=== PATIENT | male | born 1980 | race Caucasian/White ===

== ENCOUNTER 2016-07-08 10:33 | Emergency (ER) | payer OTHER ==
[2016-07-08 11:02] VITALS: BP 138/97
--- NOTE | 2016-07-08 12:46 | UC ---
Freda Dupont Rebecca, scribed for Venita Kunz MD on 07/08/16 at 1131 . Respiratory Complaint HPI - HPI Summary HPI Summary: Pt is a 36 y/o M who presents to [facility] c/o nonproductive "chest" cough. Sx began suddenly 4 days ago and have been constant since onset. Sx aggravated and alleviated by nothing. Additionally c/o abd pain and vomiting every morning for the last 2 months. Abd pain is intermittent, sharp and diffuse. Pt denies pain ( note: triage note says pain is 4/10, pt denies pain). Typically takes Zantac, but he ran out a few days ago. Pt is accompanied by his and 3 sons, all of whom are also ill. One of the children just finished the Z-Pac which alleviated sx. SHx current smoker. PMHx ulcers and HTN. PCP is Dr. Chu. - History of Current Complaint Chief Complaint: UCRespiratory Stated Complaint: CHEST CONGESTION Hx Obtained From: Patient Onset/Duration: Sudden Onset, Lasting Days - 4 days ago, Still Present Timing: Constant Severity Initially: Moderate Severity Currently: None Pain Intensity: 0 Pain Scale Used: 0-10 Numeric Character: Cough: Nonproductive Aggravating Factors: Nothing Alleviating Factors: Nothing Associated Signs And Symptoms: Positive: Negative - Allergies/Home Medications Allergies/Adverse Reactions: Allergies Allergy/AdvReac Type Severity Reaction Status Date / Time Bee Venom Allergy Swelling Verified 07/08/16 10:57 Of Face,Lips,& Throat PMH/Surg Hx/FS Hx/Imm Hx Cardiovascular History Of: Reports: Hypertension - Does not take meds - high BP since teenager Denies: Cardiac Disorders GI/ History Of: Reports: Ulcer - takes zantac daily - Surgical History Surgical History: Yes Surgery Procedure, Year, and Place: elbow surgery for fx - Family History Known Family History: Positive: Diabetes, Respiratory Disease - asthma, Other - Hemangioma Negative: Cardiac Disease, Hypertension - Social History Lives: With Family - and children Alcohol Use: None Substance Use Type: None Smoking Status (MU): Light Every Day Tobacco Smoker Type: Cigarettes Amount Used/How Often: 1/2 ppd Length of Time of Smoking/Using Tobacco: 17+ YEARS - Immunization History Most Recent Influenza Vaccination: never Most Recent Tetanus Shot: up to date Review of Systems Respiratory: Cough - nonproductive Gastrointestinal: Abdominal Pain - diffuse, Vomiting - every morning All Other Systems Reviewed And Are Negative: Yes Physical Exam Triage Information Reviewed: Yes Appearance: No Pain Distress, Well-Nourished, Ill-Appearing - mild Vital Signs: Initial Vital Signs Temp 98.6 F 07/08/16 10:57 Pulse 66 07/08/16 10:57 Resp 16 07/08/16 10:57 BP 138/97 07/08/16 10:57 Pulse Ox 96 07/08/16 10:57 Vital Signs Reviewed: Yes Eyes: Positive: Conjunctiva Clear ENT: Positive: Pharyngeal erythema, TMs normal, Tonsillar swelling. Negative: Tonsillar exudate Neck: Positive: Supple, Nontender, No Lymphadenopathy Respiratory: Positive: Lungs clear, Normal breath sounds, No respiratory distress Cardiovascular: Positive: RRR, No Murmur, Pulses Normal, Brisk Capillary Refill Abdomen Description: Positive: Nontender, No Organomegaly, Soft, McBurney's Point Tenderness, Peritoneal Signs. Negative: Distended, Guarding Musculoskeletal: Positive: Strength Intact, ROM Intact Neurological: Positive: Alert, Muscle Tone Normal Psychological Exam: Normal Skin Exam: Normal UC Diagnostic Evaluation - Laboratory O2 Sat by Pulse Oximetry: 96 Respiratory Course/Dx - Course Course Of Treatment: Counseled pt on different sleeping position to alleviate GERD and quitting smoking. - Differential Dx/Diagnosis Differential Diagnosis/HQI/PQRI: Asthma, Bronchitis, Influenza, Lower Resp Infection, Other - GERD Provider Diagnoses: Acute bronchitis. GERD. tobacco abuse disorder Discharge - Discharge Plan Condition: Stable Disposition: HOME Prescriptions: Azithromycin TAB* [Zithromax TAB (Z-KAREL) 250 mg #6 tabs] 2 tab PO .TODAY, THEN 1 DAILY #1 karel Pantoprazole TAB (NF) [Protonix TAB (NF)] 40 mg PO DAILY #30 tab Patient Education Materials: How to Stop Smoking (ED), Acute Bronchitis (ED), Gastroesophageal Reflux Disease (ED) Referrals: Vladimir Chu MD [Primary Care Provider] - Additional Instructions: RETURN TO URGENT CARE FOR ANY RETURNING OR WORSENING SYMPTOMS. The documentation as recorded by the Freda daniels Rebecca accurately reflects the service I personally performed and the decisions made by Ze casas Barbara J, MD.
== END 2016-07-08 12:01 | disposition home or self-care (01) ==
LOC: UCEAST 10:33
DX: J20.9 Acute bronchitis, unspecified (principal); K21.9 Gastro-esophageal reflux disease without esophagitis; F17.210 Nicotine dependence, cigarettes, uncomplicated
CPT/HCPCS: 99212; G0463

== ENCOUNTER → 2018-03-19 19:26 | Emergency (ER) | payer OTHER ==
[~2018-03-19 19:26] MED LIST: oxyCODONE/Acetamin 5/325 MG* TAB PO ONE
--- NOTE | 2018-03-19 21:07 | ED ---
Upper Extremity Pain - HPI Summary HPI Summary: 37-year-old male presents with pain in his left elbow today. States he was lifting a lawnmower and felt a pop in his left elbow. He states since then he has pain in left arm and along denies any pain ulnar aspect of his arm into his fingers. He admits some numbness and tingling. He states he previously broke his elbow 15 years ago and required a screw placed. is right handed. is self employed. is in extreme amount of pain. can not full extend arm. no medical conditions. - History of Current Complaint Chief Complaint: EDExtremityUpper Stated Complaint: LT ARM INJURY Time Seen by Provider: 03/19/18 20:43 - Allergies/Home Medications Allergies/Adverse Reactions: Allergies Allergy/AdvReac Type Severity Reaction Status Date / Time bee venom protein (honey bee) Allergy Swelling Verified 03/19/18 19:32 Of Face,Lips,& Throat PMH/Surg Hx/FS Hx/Imm Hx Endocrine/Hematology History: Denies: Hx Diabetes, Hx Thyroid Disease Cardiovascular History: Reports: Hx Hypertension - Does not take meds - high BP since teenager Respiratory History: Reports: Other Respiratory Problems/Disorders - 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 Denies: Hx Asthma, Hx Chronic Obstructive Pulmonary Disease (COPD), Hx Seasonal Allergies GI History: Reports: Hx Ulcer - takes zantac daily Psychiatric History: Denies: Hx Anxiety, Hx Depression - Surgical History Surgery Procedure, Year, and Place: elbow surgery for fx Infectious Disease History: No Infectious Disease History: Denies: Hx Clostridium Difficile, Hx Hepatitis, Hx Human Immunodeficiency Virus (HIV), Hx of Known/Suspected MRSA, Hx Shingles, Hx Tuberculosis, Hx Known/ Suspected VRE, Hx Known/Suspected VRSA, History Other Infectious Disease, Traveled Outside the [place] in Last 30 Days - Family History Known Family History: Positive: Diabetes, Respiratory Disease - asthma, Other - Hemangioma Negative: Cardiac Disease, Hypertension Family History: NON CONTRIBUTORY - Social History Alcohol Use: None Substance Use Type: Reports: None Smoking Status (MU): Light Every Day Tobacco Smoker Type: Cigarettes Amount Used/How Often: 1/2 ppd Length of Time of Smoking/Using Tobacco: 17+ YEARS Review of Systems Negative: Fever Negative: Chest Pain Negative: Shortness Of Breath Positive: Myalgia - left elbow pain All Other Systems Reviewed And Are Negative: Yes Physical Exam Triage Information Reviewed: Yes Vital Signs On Initial Exam: Initial Vitals Temp Pulse Resp BP Pulse Ox 98.7 F 89 16 132/94 95 03/19/18 19:29 03/19/18 19:29 03/19/18 19:29 03/19/18 19:29 03/19/18 19:29 Vital Signs Reviewed: Yes Appearance: Positive: Well-Appearing Skin: Positive: Warm, Dry Head/Face: Positive: Normal Head/Face Inspection Eyes: Positive: Normal, Conjunctiva Clear ENT: Positive: Pharynx normal Respiratory/Lung Sounds: Positive: Clear to Auscultation, Breath Sounds Present Cardiovascular: Positive: Normal, RRR Musculoskeletal: Positive: Limited @ - left elbow, Other - tenderness left elbow , tenderness along ulnar nerve, capillary refill<2 secs, good pulses Neurological: Positive: Normal Psychiatric: Positive: Normal Procedures - Splinting Upper Extremity Location: left arm Hand-Made Type: orthoglass Splint: posterior long Pre-Proc Neuro Vasc Exam: normal Post-Proc Neuro Vasc Exam: normal Diagnostics - Vital Signs Vital Signs Temp Pulse Resp BP Pulse Ox 03/19/18 19:29 98.7 F 89 16 132/94 95 - Laboratory Lab Statement: Any lab studies that have been ordered have been reviewed, and results considered in the medical decision making process. - Radiology elbow Radiology Interpretation Completed By: ED Physician Summary of Radiographic Findings: medial condylar fracture Course/Dx - Course Course Of Treatment: 37-year-old male presents with pain in his left elbow today. States he was lifting a lawnmower and felt a pop in his left elbow. He states since then he has pain in left arm and along denies any pain ulnar aspect of his arm into his fingers. He admits some numbness and tingling. He states he previously broke his elbow 15 years ago and required a screw placed. is right handed. is self employed. is in extreme amount of pain. can not full extend arm. no medical conditions. On exam tenderness over left patella. Neurovascular intact. X-ray shows fracture of the condyle of the humerus. Discussed with Dr. Phillip and told placed in posterior long splint and a sling and will have follow-up in office tomorrow. Patient understands and agrees with the plan. - Diagnoses Differential Diagnosis/HQI/PQRI: Positive: Fracture (Closed), Strain, Sprain Provider Diagnoses: Elbow fracture, left Discharge - Sign-Out/Discharge Documenting (check all that apply): Patient Departure - Discharge Plan Condition: Good Disposition: HOME Prescriptions: oxyCODONE/Acetamin 5/325 MG* [Percocet 5/325 TAB*] 1 tab PO Q6H PRN #12 tab MDD 4 PRN Reason: Pain Patient Education Materials: Elbow Fracture (ED) Referrals: Vladimir Chu MD [Primary Care Provider] - Steve Phillip MD [Medical Doctor] - Additional Instructions: Keep elbow in sling as needed Keep splint on area and keep dry Call ortho office tomorrow to set up appointment for follow up Use ibuprofen for pain every 6 hours and use narcotic for breakthrough pain every 6 hours Ice, elevate Return to ED if develop any new or worsening symptoms - Billing Disposition and Condition Condition: GOOD Disposition: Home
[2018-03-19 22:20] VITALS: BP 151/106
--- NOTE | 2018-03-20 08:06 | RAD ---
HISTORY: left arm pain COMPARISONS: None VIEWS: 6 , Frontal, lateral, and oblique views of the left elbow , frontal and lateral views of the left forearm FINDINGS: BONE DENSITY: Normal. BONES: There is evidence of remote post traumatic changes to the supracondylar humerus with post surgical change to the medial (ulnar) aspect of the supracondylar humerus. There is no evidence of acute displaced fracture. The medial condylar fracture described on the preliminary report is felt to be chronic without acute injury. 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 ALIGNMENT: There is no dislocation. SOFT TISSUES: Unremarkable. OTHER FINDINGS: None. IMPRESSION: POSTSURGICAL AND CHRONIC POST TRAUMATIC CHANGES TO THE LEFT ELBOW WITHOUT ACUTE OSSEOUS INJURY. IF SYMPTOMS PERSIST, RECOMMEND REPEAT IMAGING. R2
--- NOTE | 2018-03-20 08:07 | RAD ---
HISTORY: left hand pain COMPARISONS: None VIEWS: 4 , Frontal, lateral, and oblique views of the left hand FINDINGS: BONE DENSITY: Normal. BONES: There is chronic posttraumatic deformity to the fifth metacarpal. There is no acute displaced fracture. JOINTS: There is no arthropathy. ALIGNMENT: There is no dislocation. SOFT TISSUES: Unremarkable. OTHER FINDINGS: None. IMPRESSION: NO ACUTE OSSEOUS INJURY. IF SYMPTOMS PERSIST, RECOMMEND REPEAT IMAGING. R0
== END | disposition home or self-care (01) ==
LOC: ED 19:26
DX: S42.402A Unspecified fracture of lower end of left humerus, initial encounter for closed fracture (principal); M25.522 Pain in left elbow; F17.210 Nicotine dependence, cigarettes, uncomplicated; X50.0XXA Overexertion from strenuous movement or load, initial encounter; Y92.9 Unspecified place or not applicable
CPT/HCPCS: 99282; A9270-GY